=== PATIENT | female | born 1970 ===

== ENCOUNTER 2023-11-14 06:47 | Day surgery (SDC) | payer MEDICAID ==
[~2023-11-14] VITALS: Ht 165.1 cm; Wt 59.0 kg
[2023-11-14] MEDS ORDERED: MIDAZOLAM HCL 5 MG/5 ML VIAL ONE (07:14)
[2023-11-14] MEDS ORDERED: MEPERIDINE 100 MG INJ. 100 MG/ML VIAL ONE (07:14)
[2023-11-14] MEDS ORDERED: ATROPINE SULFATE 0.4 MG/ML VIAL ONE (08:34)
[2023-11-14 11:17] VITALS: O2SAT 100
[2023-11-14 14:36] VITALS: BP_SYST 124; PULSE 55; RESP 18
== END 2023-11-14 10:35 | disposition home or self-care (01) ==
LOC: SDS 06:47 → SMU 06:51 → SDS 10:35
PROVIDERS: ATTEND Student in an Organized Health Care Education/Training Program
DX: R10.30 Lower abdominal pain, unspecified (principal); K57.30 Diverticulosis of large intestine without perforation or abscess without bleeding; K64.8 Other hemorrhoids
CPT/HCPCS: 45378; 82948; 99152; G0378; J0461; J2250; J2175